=== PATIENT | female | born 1975 | race Caucasian/White ===

== ENCOUNTER 2017-01-29 11:51 | Emergency (ER) | payer BC ==
[2017-01-29] MEDS ORDERED: Ketorolac 60 MG/2 ML SDV IM ONE (12:23)
[2017-01-29] MEDS ORDERED: predniSONE 20 MG Tab PO ONE (12:23)
--- NOTE | 2017-01-29 12:29 | EDM.PDOC ---
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 She presents today stating that she is having an episode of this back pain and it is worse than usual and did not respond to Tylenol or Motrin which he usually does. She has had no bowel or bladder disturbances and denies any recent trauma or falls. Today the patient says the pain feels more muscular and she felt that a couple of days ago and it seems to have increased gradually. It is worse with certain movements and walking and this time it is radiating to her left buttock and posterior leg. She does not state that the pain is shooting pain and there is no neurosensory changes in her legs or weakness. She has never had any formal testing such as MRI and has no disc history. Is no abdominal pain fever chills flank pain or urinary complaints. Review of systems: As per history of present illness and below otherwise all systems reviewed and negative. Past medical history: As per history of present illness and as reviewed below otherwise noncontributory. Surgical history: As per history of present illness and as reviewed below otherwise noncontributory. Social history: No reported history of drug or alcohol abuse. Family history: As per history of present illness and as reviewed below otherwise noncontributory. Physical exam: General: A well-developed thin female who is nontoxic and looks uncomfortable with position changes but is able to ambulate without difficulty. HEENT: Atraumatic, normocephalic, negative for conjunctival pallor or scleral icterus, mucous membranes moist, throat clear, neck supple, nontender, trachea midline. Lungs: Clear to auscultation, breath sounds equal bilaterally, chest nontender. Heart: S1S2, regular, negative for clicks, rubs, or JVD. Abdomen: Soft, nondistended, nontender. NABS Negative for costovertebral tenderness. Pelvis: Stable nontender. Genitourinary: Deferred. Rectal: Deferred. Extremities: Atraumatic, negative for cords or calf pain. Neurovascular unremarkable. Neuro: Awake, alert, oriented. Cranial nerves II through XII unremarkable. Cerebellum unremarkable. Motor and sensory unremarkable throughout. Exam nonfocal. Dorsi and plantar flexion is intact 5/5 inclusive of the great toe, inversion and eversion of the feet is intact,gait is slowed in the ED but is intact Diagnostics: [] Therapeutics: Toradol and Norflex As the patient that she needs to connect with her clinic physician for further care and evaluation as she may need imaging going to [place] if the pain does not improve. I will give her a burst of steroids as some of which she is describing sounds like sciatica. I will also give her pain medications and have her continue using ibuprofen along with the pain meds Impression: Lumbar back pain with sciatica, acute on chronic Definitive disposition and diagnosis as appropriate pending reevaluation and review of above. Lower Back Pain Score (Numeric/FACES): 6 - Related Data Allergies Allergy/AdvReac Type Severity Reaction Status Date / Time No Known Allergies Allergy Verified 01/29/17 12:07 Home Meds: Home Meds Control 1 tab PO DAILY 01/29/17 [History] Past Medical History Gastrointestinal History: Reports: None - Past Surgical History GI Surgical History: Reports: Cholecystectomy Female Surgical History: Reports: Section Social & Family History - Family History Family Medical History: Noncontributory - Tobacco Use Smoking Status *Q: Current Every Day Smoker Years of Tobacco use: 4 Packs/Tins Daily: 0.5 - Caffeine Use Caffeine Use: Reports: Coffee Caffeine Use Comment: 3 cups - Recreational Drug Use Recreational Drug Use: No ED ROS GENERAL - Review of Systems Review Of Systems: ROS reveals no pertinent complaints other than HPI. ED EXAM, GENERAL - Physical Exam Exam: See Below (See dictation) Course - Vital Signs Last Recorded V/S: Last Vital Signs Temp 37.1 C 01/29/17 12:08 Pulse 109 H 01/29/17 12:08 Resp 16 01/29/17 12:08 BP 146/87 H 01/29/17 12:08 Pulse Ox 97 01/29/17 12:08 - Orders/Labs/Meds Orders: Active Orders 24 hr Category Date Time Status Ketorolac [Toradol] Med 01/29/17 12:23 Once 60 mg IM ONETIME ONE Orphenadrine [Norflex] Med 01/29/17 12:23 Once 60 mg IM ONETIME ONE predniSONE Med 01/29/17 12:23 Once 40 mg PO ONETIME ONE Departure - Departure Time of Disposition: 12:29 Disposition: Home, Self-Care 01 Condition: fair Clinical Impression: Back pain of lumbar region with sciatica - Discharge Information Forms: ED Department Discharge Additional Instructions: The following information is given to patients seen in the emergency department who are being discharged to home. This information is to outline your options for follow-up care. We provide all patients seen in our emergency department with a follow-up referral. The need for follow-up, as well as the timing and circumstances, are variable depending upon the specifics of your emergency department visit. If you don't have a primary care physician on staff, we will provide you with a referral. We always advise you to contact your personal physician following an emergency department visit to inform them of the circumstance of the visit and for follow-up with them and/or the need for any referrals to a consulting specialist. The emergency department will also refer you to a specialist when appropriate. This referral assures that you have the opportunity for followup care with a specialist. All of these measure are taken in an effort to provide you with optimal care, which includes your followup. Under all circumstances we always encourage you to contact your private physician who remains a resource for coordinating your care. When calling for followup care, please make the office aware that this follow-up is from your recent emergency room visit. If for any reason you are refused follow-up, please contact the [facility] emergency department at and ask to speak to the emergency department charge nurse. [facility] Primary [facility]- Internal Medicine and Family [address] [address] Use ice after any activities for a few hours and then apply heat and try to stretch open the area as best you can. Use medications as prescribed and please call and followup in our clinic for further care and evaluation. Return to ER as needed and as discussed - My Orders Last 24 Hours: My Active Orders 01/29/17 12:23 Ketorolac [Toradol] 60 mg IM ONETIME ONE Orphenadrine [Norflex] 60 mg IM ONETIME ONE predniSONE 40 mg PO ONETIME ONE - Assessment/Plan Last 24 Hours: My Active Orders 01/29/17 12:23 Ketorolac [Toradol] 60 mg IM ONETIME ONE Orphenadrine [Norflex] 60 mg IM ONETIME ONE predniSONE 40 mg PO ONETIME ONE
[2017-01-29 13:31] VITALS: BP 131/83
== END 2017-01-29 12:51 | disposition home or self-care (01) ==
LOC: MW.ED 11:51
DX: M54.40 Lumbago with sciatica, unspecified side (principal); F17.210 Nicotine dependence, cigarettes, uncomplicated; Z90.49 Acquired absence of other specified parts of digestive tract
CPT/HCPCS: 96372; 99283; A9270; J1885; J2360

== ENCOUNTER 2017-02-04 15:42 | Emergency (ER) | payer BC ==
[2017-02-04] MEDS ORDERED: Ketorolac 60 MG/2 ML SDV IM ONE (16:09)
--- NOTE | 2017-02-04 16:12 | EDM.PDOC ---
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 Past medical history: As per history of present illness and as reviewed below otherwise noncontributory. Surgical history: As per history of present illness and as reviewed below otherwise noncontributory. Social history: No reported history of drug or alcohol abuse. Family history: As per history of present illness and as reviewed below otherwise noncontributory. Physical exam: HEENT: Atraumatic, normocephalic, pupils reactive, negative for conjunctival pallor or scleral icterus, mucous membranes moist, throat clear, neck supple, nontender, trachea midline. Lungs: Clear to auscultation, breath sounds equal bilaterally, chest nontender. Heart: S1S2, regular, negative for clicks, rubs, or JVD. Abdomen: Soft, nondistended, nontender. Negative for masses or hepatosplenomegaly. Negative for costovertebral tenderness. Pelvis: Stable nontender. Genitourinary: Deferred. Rectal: Deferred. Extremities: Atraumatic, negative for cords or calf pain. Neurovascular unremarkable. Neuro: Awake, alert, oriented. Cranial nerves II through XII unremarkable. Cerebellum unremarkable. Motor and sensory unremarkable throughout. Exam nonfocal. Back: Patient is mild paravertebral tenderness at the level of the lumbar spine the vertebral body or point tenderness she is able to stand on her toes back on her heels deep tendon reflexes motor and sensory are unremarkable Diagnostics: CT lumbar spine Therapeutics: Toradol 60 mg IM Impression: #1 lumbosacral strain Definitive disposition and diagnosis as appropriate pending reevaluation and review of above. - Related Data Allergies Allergy/AdvReac Type Severity Reaction Status Date / Time No Known Allergies Allergy Verified 02/04/17 16:00 Home Meds: Home Meds Control 1 tab PO DAILY 01/29/17 [History] Muscle Relaxant 0 mg PO ASDIRECTED 02/04/17 [History] Past Medical History Gastrointestinal History: Reports: None - Past Surgical History GI Surgical History: Reports: Cholecystectomy Female Surgical History: Reports: Section Social & Family History - Family History Family Medical History: Noncontributory - Tobacco Use Smoking Status *Q: Current Every Day Smoker Years of Tobacco use: 4 Packs/Tins Daily: 0.5 - Caffeine Use Caffeine Use: Reports: Coffee Caffeine Use Comment: 3 cups - Recreational Drug Use Recreational Drug Use: No ED ROS GENERAL - Review of Systems Review Of Systems: ROS reveals no pertinent complaints other than HPI. ED EXAM, GENERAL - Physical Exam Exam: See Below (See dictation) Course - Vital Signs Last Recorded V/S: Last Vital Signs Temp 36.9 C 02/04/17 16:06 Pulse 118 H 02/04/17 16:06 Resp 16 02/04/17 16:06 BP 137/82 02/04/17 16:06 Pulse Ox 96 02/04/17 16:06 - Orders/Labs/Meds Orders: Active Orders 24 hr Category Date Time Status Lumbar Spine wo Cont [CT] Stat Exams 02/04/17 16:09 Taken Labs: Laboratory Tests 02/04/17 Range/Units 16:25 HCG, Qual NEGATIVE (NEG) Meds: Medications Discontinued Medications Generic Name Dose Route Start Last Admin Trade Name Freq PRN Reason Stop Dose Admin Ketorolac Tromethamine 60 mg 02/04/17 16:09 02/04/17 16:27 Toradol IM 02/04/17 16:10 60 mg ONETIME ONE Administration Departure - Departure Time of Disposition: 18:19 Disposition: Home, Self-Care 01 Condition: good Clinical Impression: Lumbosacral strain - Discharge Information Forms: ED Department Discharge Additional Instructions: The following information is given to patients seen in the emergency department who are being discharged to home. This information is to outline your options for follow-up care. We provide all patients seen in our emergency department with a follow-up referral. The need for follow-up, as well as the timing and circumstances, are variable depending upon the specifics of your emergency department visit. If you don't have a primary care physician on staff, we will provide you with a referral. We always advise you to contact your personal physician following an emergency department visit to inform them of the circumstance of the visit and for follow-up with them and/or the need for any referrals to a consulting specialist. The emergency department will also refer you to a specialist when appropriate. This referral assures that you have the opportunity for followup care with a specialist. All of these measure are taken in an effort to provide you with optimal care, which includes your followup. Under all circumstances we always encourage you to contact your private physician who remains a resource for coordinating your care. When calling for followup care, please make the office aware that this follow-up is from your recent emergency room visit. If for any reason you are refused follow-up, please contact the [facility] emergency department at and asked to speak to the emergency department charge nurse. [facility] [address] [place] [id number] I will primary medical doctor and/or clinic above is discussed followup with neurosurgery referral [facility] as discussed return as needed as discussed Ultram as prescribed - My Orders Last 24 Hours: My Active Orders 02/04/17 16:09 Lumbar Spine wo Cont [CT] Stat - Assessment/Plan Last 24 Hours: My Active Orders 02/04/17 16:09 Lumbar Spine wo Cont [CT] Stat
[2017-02-04 16:17] VITALS: BP 137/82
--- NOTE | 2017-02-05 13:18 | CT ---
EXAM DATE: 02/04/17 PATIENT'S AGE: 41 Patient: ROBETR GUADARRAMA Facility: [place], [place] Site . Site : 1975 Study: CT Spine Lumbar [id number]/23/2017 5:41:01 PM Ordering Physician: Mason Fischer Final Report: INDICATION: Low back pain radiating into both lower extremities TECHNIQUE: CT lumbar spine without contrast. COMPARISON: None FINDINGS: Vertebral alignment: Alignment is normal. Mild scoliosis possibly positional. Vertebrae: There are no fractures or suspicious bony lesions. Discs and facet joints: Disc spaces and facets are within normal limits. Extraspinal findings: Prevertebral soft tissues and visualized retroperitoneum are unremarkable. IMPRESSION: Unremarkable lumbar spine CT. Dictated by John Vaughan MD @ 02/04/2017 6:09:40 PM Dictated by: John Vaughan MD @ 02/04/2017 18:09:44 (Electronic Signature) Report Signed by Proxy. [email or web address]
== END 2017-02-04 18:30 | disposition home or self-care (01) ==
LOC: MW.ED 15:42
DX: S39.012A Strain of muscle, fascia and tendon of lower back, initial encounter (principal); F17.210 Nicotine dependence, cigarettes, uncomplicated; Z90.49 Acquired absence of other specified parts of digestive tract; X58.XXXA Exposure to other specified factors, initial encounter
CPT/HCPCS: 36415; 72131; 84703; 96372; 99284; J1885; 99283

== ENCOUNTER 2017-07-14 18:34 | Emergency (ER) | payer SELFPAY ==
--- NOTE | 2017-07-14 19:04 | EDM.PDOC ---
ED HPI GENERAL MEDICAL PROBLEM - General Chief Complaint: Upper Extremity Injury/Pain Stated Complaint: LEFT MIDDLE FINGER PAIN Time Seen by Provider: 07/14/17 18:40 Source of Information: Reports: Patient History Limitations: Reports: No Limitations - History of Present Illness INITIAL COMMENTS - FREE TEXT/NARRATIVE: History of present illness: [42-year-old female comes in status post slamming her left hand in a door subsequently trapping of the third digit. Patient acute she tried to tolerate for a period of time but now she can't tolerate the pain anymore will like to have it evaluated] Review of systems: As per history of present illness and below otherwise all systems reviewed and negative. Past medical history: As per history of present illness and as reviewed below otherwise noncontributory. Surgical history: As per history of present illness and as reviewed below otherwise noncontributory. Social history: No reported history of drug or alcohol abuse. Family history: As per history of present illness and as reviewed below otherwise noncontributory. Physical exam: HEENT: Atraumatic, normocephalic, pupils reactive, negative for conjunctival pallor or scleral icterus, mucous membranes moist, throat clear, neck supple, nontender, trachea midline. Lungs: Clear to auscultation, breath sounds equal bilaterally, chest nontender. Heart: S1S2, regular, negative for clicks, rubs, or JVD. Abdomen: Soft, nondistended, nontender. Negative for masses or hepatosplenomegaly. Negative for costovertebral tenderness. Pelvis: Stable nontender. Genitourinary: Deferred. Rectal: Deferred. Extremities: Left hand third digit with the phalanx with traumatic injury, negative for cords or calf pain. Neurovascular unremarkable. Neuro: Awake, alert, oriented. Cranial nerves II through XII unremarkable. Cerebellum unremarkable. Motor and sensory unremarkable throughout. Exam nonfocal. Diagnostics: [X-ray of left hand third digit] Therapeutics: [Toradol] Impression: [#1 type fracture of the third digit of the left hand] Plan: [Splint, follow-up with orthopedics] Definitive disposition and diagnosis as appropriate pending reevaluation and review of above. 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: - Past Surgical History GI Surgical History: Reports: Cholecystectomy Female Surgical History: Reports: Section Social & Family History - Family History Family Medical History: Noncontributory - Tobacco Use Smoking Status *Q: Current Every Day Smoker Years of Tobacco use: 4 Packs/Tins Daily: 0.5 - Caffeine Use Caffeine Use: Reports: Coffee Caffeine Use Comment: 3 cups - Recreational Drug Use Recreational Drug Use: No Review of Systems - Review of Systems Review Of Systems: See Below (See history of present illness) ED EXAM, GENERAL - Physical Exam Exam: See Below (See history of present illness) Course - Vital Signs Last Recorded V/S: Last Vital Signs Temp 37.0 C 07/14/17 18:55 Pulse 90 07/14/17 18:55 Resp 18 07/14/17 18:55 BP 118/67 07/14/17 18:55 Pulse Ox 96 07/14/17 18:55 - Orders/Labs/Meds Orders: Active Orders 24 hr Category Date Time Status Fingers Third Digit Lt F2 [CR] Stat Exams 07/14/17 18:49 Ordered Meds: Medications Discontinued Medications Generic Name Dose Route Start Last Admin Trade Name Diana PRN Reason Stop Dose Admin Ketorolac Tromethamine 60 mg 07/14/17 19:10 07/14/17 19:46 Toradol IM 07/14/17 19:11 60 mg ONETIME ONE Administration Departure - Departure Time of Disposition: 20:01 Disposition: Home, Self-Care 01 Condition: Good Clinical Impression: Closed fracture of tuft of distal phalanx of finger - Discharge Information Instructions: Finger Fracture, [id number], Cast or Splint Care, [id number] Referrals: PCP,None [Primary Care Provider] - Forms: ED Department Discharge Additional Instructions: The following information is given to patients seen in the emergency department who are being discharged to home. This information is to outline your options for follow-up care. We provide all patients seen in our emergency department with a follow-up referral. The need for follow-up, as well as the timing and circumstances, are variable depending upon the specifics of your emergency department visit. If you don't have a primary care physician on staff, we will provide you with a referral. We always advise you to contact your personal physician following an emergency department visit to inform them of the circumstance of the visit and for follow-up with them and/or the need for any referrals to a consulting specialist. The emergency department will also refer you to a specialist when appropriate. This referral assures that you have the opportunity for follow-up care with a specialist. All of these measure are taken in an effort to provide you with optimal care, which includes your follow-up. Under all circumstances we always encourage you to contact your private physician who remains a resource for coordinating your care. When calling for follow-up care, please make the office aware that this follow-up is from your recent emergency room visit. If for any reason you are refused follow-up, please contact the [facility] Emergency Department at and asked to speak to the emergency department charge nurse. Take medication as directed Follow-up with orthopedic referral [facility] - Orthopedic [facility] Professional Building [address] [place] [address], [address] [place] [address] - My Orders Last 24 Hours: My Active Orders 07/14/17 18:49 Fingers Third Digit Lt F2 [CR] Stat - Assessment/Plan Last 24 Hours: My Active Orders 07/14/17 18:49 Fingers Third Digit Lt F2 [CR] Stat
[2017-07-14] MEDS ORDERED: Ketorolac 60 MG/2 ML SDV IM ONE (19:10)
[2017-07-14 20:53] VITALS: BP 131/77
--- NOTE | 2017-07-15 11:38 | CR ---
EXAM DATE: 07/14/17 PATIENT'S AGE: 42 Patient: ROBERT GUADARRAMA Facility: [place], [place] Site . Site : 1975 Study: XRay Extremity 3rd digit [id number]/30/2017 7:11:02 PM Ordering Physician: Doctor Glass Final Report: HISTORY: Crush finger in a car door. FINDINGS: Three views of the left middle finger demonstrate a nondisplaced fracture of the distal tuft of the middle finger. This does not involve the articular surface. IMPRESSION: Nondisplaced distal tuft fracture. Dictated by Sujata Pantoja MD @ 07/14/2017 7:36:27 PM Dictated by: Sujata Pantoja MD @ 07/14/2017 19:36:34 (Electronic Signature) Report Signed by Proxy. [email or web address]
== END 2017-07-14 20:24 | disposition home or self-care (01) ==
LOC: MW.ED 18:34
DX: S62.663A Nondisplaced fracture of distal phalanx of left middle finger, initial encounter for closed fracture (principal); F17.210 Nicotine dependence, cigarettes, uncomplicated; W23.0XXA Caught, crushed, jammed, or pinched between moving objects, initial encounter
CPT/HCPCS: 73140; 96372; 99283; J1885; 99282

== ENCOUNTER 2017-08-02 09:51 | Emergency (ER) | payer SELFPAY ==
[2017-08-02 10:09] VITALS: BP 131/80
[2017-08-02] MEDS ORDERED: Benzocaine 20% Topical Spray UD MUCMEM ONE (10:21)
[2017-08-02] MEDS ORDERED: Lidocaine 2% Viscous Solution 15 ML Cup PO ONE (10:21)
[2017-08-02] MEDS ORDERED: Ketorolac 60 MG/2 ML SDV IM ONE (10:21)
--- NOTE | 2017-08-02 10:26 | EDM.PDOC ---
ED HPI GENERAL MEDICAL PROBLEM - General Chief Complaint: General Stated Complaint: oral pain Time Seen by Provider: 08/02/17 10:21 Source of Information: Reports: Patient History Limitations: Reports: No Limitations - History of Present Illness INITIAL COMMENTS - FREE TEXT/NARRATIVE: HISTORY AND PHYSICAL: History of present illness: Patient is a 42-year-old female who presents to the emergency room with complaints of dental pain which started last night. Patient reports that she had a crown placed approximately 4 months ago and now she needs a root canal which "should've been done before". She has a dentist at a local establishment, [facility]. Denies any fever or chills. Denies any difficulty chewing, swallowing, breathing. Review of systems: As per history of present illness and below otherwise all systems reviewed and negative. Past medical history: As per history of present illness and as reviewed below otherwise noncontributory. Surgical history: As per history of present illness and as reviewed below otherwise noncontributory. Social history: No reported history of drug or alcohol abuse. Family history: As per history of present illness and as reviewed below otherwise noncontributory. Physical exam: Gen.: Well-developed and well-nourished 42-year-old female. Appears nontoxic. Alert and oriented. HEENT: Atraumatic, normocephalic, pupils reactive, negative for conjunctival pallor or scleral icterus, mucous membranes moist, throat clear, neck supple, nontender, trachea midline. Reports pain at tooth #2, mild erythema noted no swelling or abscess. No trismus or hot potato voice, no drooling. Lungs: Clear to auscultation, breath sounds equal bilaterally, chest nontender. Heart: S1S2, regular, negative for clicks, rubs, or JVD. Abdomen: Soft, nondistended, nontender. Negative for masses or hepatosplenomegaly. Negative for costovertebral tenderness. Pelvis: Stable nontender. Genitourinary: Deferred. Rectal: Deferred. Extremities: Atraumatic, negative for cords or calf pain. Neurovascular unremarkable. Neuro: Awake, alert, oriented. Cranial nerves II through XII unremarkable. Cerebellum unremarkable. Motor and sensory unremarkable throughout. Exam nonfocal. Diagnostics: [] Therapeutics: Dental balls, Toradol Impression: Dentalgia Plan: 1. Please use the dental balls as directed. Do not swallow these as they are saturated cotton. Avoid eating jar clear after use. 2. May use the Tramadol (#12 -NR) as needed. May cause drowsiness, so do not take it when needing to functioning or driving. 3. Please make an appointment with your dentist for follow-up care. Return to the ED as needed and as discussed. Definitive disposition and diagnosis as appropriate pending reevaluation and review of above. Onset: Today Duration: Hour(s): Location: Reports: Face Right Upper Tooth Pain Score (Numeric/FACES): 7 - Related Data Allergies Allergy/AdvReac Type Severity Reaction Status Date / Time No Known Allergies Allergy Verified 08/02/17 10:04 Home Meds: Home Meds Micro Contol 1 tab PO DAILY 08/02/17 [History] Past Medical History - Past Health History Medical/Surgical History: Denies Medical/Surgical History Gastrointestinal History: Reports: None Genitourinary History: Reports: None [employer] History: Reports: - Past Surgical History GI Surgical History: Reports: Cholecystectomy Female Surgical History: Reports: Section Social & Family History - Family History Family Medical History: Noncontributory - Tobacco Use Smoking Status *Q: Current Every Day Smoker Years of Tobacco use: 4 Packs/Tins Daily: 0.5 - Caffeine Use Caffeine Use: Reports: Coffee, Soda Caffeine Use Comment: 3 cups - Recreational Drug Use Recreational Drug Use: No ED ROS GENERAL - Review of Systems Review Of Systems: ROS reveals no pertinent complaints other than HPI. ED EXAM, GENERAL - Physical Exam Exam: See Below (See dictation) Course - Vital Signs Last Recorded V/S: Last Vital Signs Temp 36.9 C 08/02/17 10:05 Pulse 94 08/02/17 10:05 Resp 16 08/02/17 10:05 BP 131/80 08/02/17 10:05 Pulse Ox 99 08/02/17 10:05 - Orders/Labs/Meds Orders: Active Orders 24 hr Category Date Time Status Benzocaine [Hurricaine One 20%] Med 08/02/17 10:21 Once 2 each MUCMEM ONETIME ONE Ketorolac [Toradol] Med 08/02/17 10:21 Once 60 mg IM ONETIME ONE Lidocaine 2% [Xylocaine 2% Viscous] Med 08/02/17 10:21 Once 15 ml PO ONETIME ONE Departure - Departure Time of Disposition: 10:26 Disposition: Home, Self-Care 01 Clinical Impression: Dentalgia - Discharge Information Referrals: PCP,None [Primary Care Provider] - Additional Instructions: My general discharge The following information is given to patients seen in the emergency department who are being discharged to home. This information is to outline your options for follow-up care. We provide all patients seen in our emergency department with a follow-up referral. The need for follow-up, as well as the timing and circumstances, are variable depending upon the specifics of your emergency department visit. If you don't have a primary care physician on staff, we will provide you with a referral. We always advise you to contact your personal physician following an emergency department visit to inform them of the circumstance of the visit and for follow-up with them and/or the need for any referrals to a consulting specialist. The emergency department will also refer you to a specialist when appropriate. This referral assures that you have the opportunity for follow-up care with a specialist. All of these measure are taken in an effort to provide you with optimal care, which includes your follow-up. Under all circumstances we always encourage you to contact your private physician who remains a resource for coordinating your care. When calling for follow-up care, please make the office aware that this follow-up is from your recent emergency room visit. If for any reason you are refused follow-up, please contact the [facility] Emergency Department at and asked to speak to the emergency department charge nurse. [facility] [address] [place] [id number] 1. Please use the dental balls as directed. Do not swallow these as they are saturated cotton. Avoid eating jar clear after use. 2. May use the Tramadol as needed. May cause drowsiness, so do not take it when needing to functioning or driving. 3. Please make an appointment with your dentist for follow-up care. Return to the ED as needed and as discussed. - My Orders Last 24 Hours: My Active Orders 08/02/17 10:21 Benzocaine [Hurricaine One 20%] 2 each MUCMEM ONETIME ONE Ketorolac [Toradol] 60 mg IM ONETIME ONE Lidocaine 2% [Xylocaine 2% Viscous] 15 ml PO ONETIME ONE - Assessment/Plan Last 24 Hours: My Active Orders 08/02/17 10:21 Benzocaine [Hurricaine One 20%] 2 each MUCMEM ONETIME ONE Ketorolac [Toradol] 60 mg IM ONETIME ONE Lidocaine 2% [Xylocaine 2% Viscous] 15 ml PO ONETIME ONE
== END 2017-08-02 11:02 | disposition home or self-care (01) ==
LOC: MW.ED 09:51
DX: K08.89 Other specified disorders of teeth and supporting structures (principal); F17.210 Nicotine dependence, cigarettes, uncomplicated
CPT/HCPCS: 96372; 99282; A9270; J1885